=== PATIENT | female | born 1980 | race Asian ===

== ENCOUNTER 2016-08-29 07:31 | Outpatient (CLI) | payer BC, OTHER ==
[2016-08-29 08:51] LABS: BASOPHILS # (AUTO) 0.1 /CMM (0.0-0.2); BASOPHILS % (AUTO) 0.4 % (0.0-2.0); DIFF TOTAL % 100 %; EOSINOPHILS # (AUTO) 0.2 /CMM (0.0-0.7); EOSINOPHILS % (AUTO) 1.4 % (0.0-6.0); HEMATOCRIT 38 % (33-45); HEMOGLOBIN 11.9 g/dL (11.5-14.8); LYMPHOCYTES # (AUTO) 3.1 /CMM (0.8-4.8); LYMPHOCYTES % (AUTO) 24.9 % (20.0-44.0); MEAN CORPUSCULAR HEMOGLOBIN 22 PG (26.0-33.0); MEAN CORPUSCULAR HGB CONC 31 g/dl (31.0-36.0); MEAN CORPUSCULAR VOLUME 71 fL (82-100); MONOCYTES # (AUTO) 0.5 /CMM (0.1-1.30); MONOCYTES % (AUTO) 4.4 % (2.0-12.0); NEUTROPHILS # (AUTO) 8.5 /CMM (1.8-8.9); NEUTROPHILS % (AUTO) 68.9 % (43.0-81.0); PLATELET COUNT (AUTO) 222 /CMM (150-450); RED BLOOD CELL COUNT(AUTO) 5.34 MIL/uL (4.0-5.2); WHITE BLOOD COUNT (AUTO) 12.3 K/uL (4.3-11.0)
[2016-08-29 09:38] LABS: ANISOCYTOSIS 2+; EOSINOPHILS % (MANUAL) 3 % (0-4); LYMPHOCYTES % (MANUAL) 23 % (16-48); MICROCYTOSIS 2+; PLATELET ESTIMATE ADEQUATE
[2016-08-29 09:39] LABS: HYPOCHROMASIA 1+
== END 2016-08-29 23:59 | disposition home or self-care (01) ==
LOC: LAB 07:31
PROVIDERS: ATTEND Family Medicine
DX: R73.9 Hyperglycemia, unspecified (principal)
CPT/HCPCS: 36415; 85025-TC

== ENCOUNTER 2017-01-29 16:31 | Outpatient (CLI) | payer BC, OTHER | END 2017-01-29 23:59 | disposition home or self-care (01) | LOC: LAB 16:31 | PROVIDERS: ATTEND Family Medicine | DX: R31.21 Asymptomatic microscopic hematuria (principal); N92.6 Irregular menstruation, unspecified; D72.829 Elevated white blood cell count, unspecified | CPT/HCPCS: 87086-TC ==

== ENCOUNTER 2017-01-30 07:39 | Outpatient (CLI) | payer BC, OTHER ==
[2017-01-30 08:27] LABS: BASOPHILS # (AUTO) 0.1 /CMM (0.0-0.2); BASOPHILS % (AUTO) 0.7 % (0.0-2.0); EOSINOPHILS # (AUTO) 0.1 /CMM (0.0-0.7); EOSINOPHILS % (AUTO) 1.3 % (0.0-6.0); HEMATOCRIT 39 % (33-45); HEMOGLOBIN 12.6 g/dL (11.5-14.8); LYMPHOCYTES # (AUTO) 2.7 /CMM (0.8-4.8); LYMPHOCYTES % (AUTO) 33.2 % (20.0-44.0); MEAN CORPUSCULAR HEMOGLOBIN 23 PG (26.0-33.0); MEAN CORPUSCULAR HGB CONC 32 g/dl (31.0-36.0); MEAN CORPUSCULAR VOLUME 70 fL (82-100); MONOCYTES # (AUTO) 0.4 /CMM (0.1-1.30); MONOCYTES % (AUTO) 4.9 % (2.0-12.0); NEUTROPHILS # (AUTO) 4.8 /CMM (1.8-8.9); NEUTROPHILS % (AUTO) 59.9 % (43.0-81.0); PLATELET COUNT (AUTO) 247 /CMM (150-450); RDW COEFFICIENT OF VARIATION 15.1 (11.5-15.0); RED BLOOD CELL COUNT(AUTO) 5.54 MIL/uL (4.0-5.2); WHITE BLOOD COUNT (AUTO) 8.1 K/uL (4.3-11.0)
[2017-01-30 08:43] LABS: ALBUMIN 3.9 g/dL (3.4-5.0); BILIRUBIN,TOTAL 0.2 mg/dL (0.2-1.0); CALCIUM, SERUM 8.3 mg/dL (8.5-10.1); CREATININE 0.7 mg/dL (0.6-1.3); POTASSIUM 3.8 mmol/L (3.5-5.1); TOTAL PROTEIN, SERUM 7.5 g/dL (6.4-8.2)
[2017-01-30 08:50] LABS: T4 (THYROXINE) 5.6 ug/dL (4.7-13.3); THYROID STIMULATING HORMONE 1.411 uIU/mL (0.358-3.74)
[2017-01-30 09:02] LABS: EOSINOPHILS % (MANUAL) 2 % (0-4); LYMPHOCYTES % (MANUAL) 34 % (16-48); MONOCYTES % (MANUAL) 6 % (0-11.0); NEUTROPHILS % (MANUAL) 58 (42-76)
[2017-01-31 11:14] LABS: *TESTOSTERONE, SERUM 26 ng/dL (8-48); ESTRADIOL 102.7 pg/mL (.); FOLLICLE STIMULATION HORMONE 2.5 mIU/mL (.); LUTEINIZING HORMONE 3.3 mIU/mL (.); PROLACTIN 13.1 ng/mL (4.8-23.3)
== END 2017-01-30 23:59 | disposition home or self-care (01) ==
LOC: LAB 07:39
PROVIDERS: ATTEND Family Medicine
DX: N92.6 Irregular menstruation, unspecified (principal); D72.829 Elevated white blood cell count, unspecified; R53.83 Other fatigue; R73.9 Hyperglycemia, unspecified; R31.21 Asymptomatic microscopic hematuria; E78.5 Hyperlipidemia, unspecified
CPT/HCPCS: 36415; 80053-TC; 80061-TC; 82670; 83001; 83002; 84146; 84403; 84436-TC; 84443-TC; 85025-TC

== ENCOUNTER 2017-02-28 08:54 | Outpatient (CLI) | payer BC, OTHER | END 2017-02-28 23:59 | disposition home or self-care (01) | LOC: US 08:54 | PROVIDERS: ATTEND Family Medicine | DX: R31.21 Asymptomatic microscopic hematuria (principal) | CPT/HCPCS: 76770-TC ==

== ENCOUNTER 2017-08-28 07:28 | Outpatient (CLI) | payer BC ==
[2017-08-28 08:15] LABS: BASOPHILS # (AUTO) 0.1 /CMM (0.0-0.2); BASOPHILS % (AUTO) 0.9 % (0.0-2.0); EOSINOPHILS # (AUTO) 0.1 /CMM (0.0-0.7); EOSINOPHILS % (AUTO) 1.9 % (0.0-6.0); HEMATOCRIT 38 % (33-45); HEMOGLOBIN 12.5 g/dL (11.5-14.8); LYMPHOCYTES # (AUTO) 1.9 /CMM (0.8-4.8); LYMPHOCYTES % (AUTO) 28.3 % (20.0-44.0); MEAN CORPUSCULAR HEMOGLOBIN 23 PG (26.0-33.0); MEAN CORPUSCULAR HGB CONC 33 g/dl (31.0-36.0); MEAN CORPUSCULAR VOLUME 71 fL (82-100); MONOCYTES # (AUTO) 0.3 /CMM (0.1-1.30); MONOCYTES % (AUTO) 5.2 % (2.0-12.0); NEUTROPHILS # (AUTO) 4.2 /CMM (1.8-8.9); NEUTROPHILS % (AUTO) 63.7 % (43.0-81.0); PLATELET COUNT (AUTO) 267 /CMM (150-450); RDW COEFFICIENT OF VARIATION 15.5 (11.5-15.0); RED BLOOD CELL COUNT(AUTO) 5.41 MIL/uL (4.0-5.2); WHITE BLOOD COUNT (AUTO) 6.6 K/uL (4.3-11.0)
[2017-08-28 08:37] LABS: APPEARANCE,URINE CLEAR (CLEAR); BILIRUBIN,TOTAL 0.4 mg/dL (0.2-1.0); BILIRUBIN,URINE NEGATIVE (NEGATIVE); BLOOD, URINE NEGATIVE Ery/uL (NEGATIVE); CALCIUM, SERUM 8.7 mg/dL (8.5-10.1); COLOR,URINE YELLOW (YELLOW); CREATININE 0.7 mg/dL (0.6-1.3); KETONES,URINE TRACE (NEGATIVE); LEUKOCYTE ESTERASE ,URINE NEGATIVE (NEGATIVE); NITRITE, URINE NEGATIVE (NEGATIVE); POTASSIUM 3.8 mmol/L (3.5-5.1); PROTEIN,URINE NEGATIVE (NEGATIVE); TOTAL PROTEIN, SERUM 7.7 g/dL (6.4-8.2); UGLUCOSE NEGATIVE (NEGATIVE); UROBILINOGEN,URINE 0.2 EU/dL (0.2)
[2017-08-28 08:38] LABS: RBC,URINE 0-2 /HPF (0-2)
[2017-08-28 08:39] LABS: BACTERIA,URINE Rare /HPF (None Seen); WBC,URINE 0-2 /HPF (0-3)
[2017-08-28 08:42] LABS: THYROID STIMULATING HORMONE 2.039 uIU/mL (0.358-3.74)
[2017-08-28 08:47] LABS: BAND % (MANUAL) 2 % (0.0-5.0); EOSINOPHILS % (MANUAL) 2 % (0-4); LYMPHOCYTES % (MANUAL) 33 % (16-48); MONOCYTES % (MANUAL) 5 % (0-11.0); NEUTROPHILS % (MANUAL) 58 (42-76)
== END 2017-08-28 23:59 | disposition home or self-care (01) ==
LOC: LAB 07:28
PROVIDERS: ATTEND Family Medicine
DX: Z00.01 Encounter for general adult medical examination with abnormal findings (principal); E53.9 Vitamin B deficiency, unspecified; Z79.899 Other long term (current) drug therapy
CPT/HCPCS: 36415; 80053-TC; 80061-TC; 81000-TC; 82306; 84439-TC; 84443-TC; 85025-TC

== ENCOUNTER 2017-11-22 10:07 | Emergency (ER) | payer BC ==
[~2017-11-22] VITALS: Ht 160 cm; Wt 68.0 kg
[2017-11-22 10:07] VITALS: BP 124/83
[2017-11-22] MEDS ORDERED: CEPHALEXIN MONOHYDRATE 500 MG CAPSULE PO ONE ×2 (10:39→11:00)
== END 2017-11-22 10:41 | disposition home or self-care (01) ==
LOC: ER 10:08
DX: L03.114 Cellulitis of left upper limb (principal); T78.49XA Other allergy, initial encounter; X58.XXXA Exposure to other specified factors, initial encounter
CPT/HCPCS: A4606; Z7610

== ENCOUNTER 2017-12-11 09:50 | Outpatient (CLI) | payer BC | END 2017-12-11 23:59 | disposition home or self-care (01) | LOC: LAB 09:50 | PROVIDERS: ATTEND Family Medicine | DX: Z12.4 Encounter for screening for malignant neoplasm of cervix (principal); Z11.3 Encounter for screening for infections with a predominantly sexual mode of transmission | CPT/HCPCS: 87491; 87591; 88142 ==

== ENCOUNTER 2018-03-28 09:44 | Outpatient (CLI) | payer BC ==
[2018-03-28 10:32] LABS: BASOPHILS # (AUTO) 0.1 /CMM (0.0-0.2); BASOPHILS % (AUTO) 0.7 % (0.0-2.0); HEMATOCRIT 39 % (33-45); HEMOGLOBIN 12.3 g/dL (11.5-14.8); LYMPHOCYTES # (AUTO) 2.9 /CMM (0.8-4.8); LYMPHOCYTES % (AUTO) 32.1 % (20.0-44.0); MEAN CORPUSCULAR HEMOGLOBIN 23 PG (26.0-33.0); MEAN CORPUSCULAR HGB CONC 31 g/dl (31.0-36.0); MEAN CORPUSCULAR VOLUME 73 fL (82-100); MONOCYTES # (AUTO) 0.4 /CMM (0.1-1.30); MONOCYTES % (AUTO) 3.9 % (2.0-12.0); NEUTROPHILS # (AUTO) 5.7 /CMM (1.8-8.9); NEUTROPHILS % (AUTO) 62.3 % (43.0-81.0); PLATELET COUNT (AUTO) 290 /CMM (150-450); RED BLOOD CELL COUNT(AUTO) 5.36 MIL/uL (4.0-5.2); WHITE BLOOD COUNT (AUTO) 9.2 K/uL (4.3-11.0)
[2018-03-28 10:43] LABS: ALBUMIN 3.8 g/dL (3.4-5.0); BILIRUBIN,TOTAL 0.2 mg/dL (0.2-1.0); CALCIUM, SERUM 8.2 mg/dL (8.5-10.1); CREATININE 0.7 mg/dL (0.6-1.3); POTASSIUM 4.2 mmol/L (3.5-5.1); TOTAL PROTEIN, SERUM 7.4 g/dL (6.4-8.2)
== END 2018-03-28 23:59 | disposition home or self-care (01) ==
LOC: LAB 09:44
PROVIDERS: ATTEND Family Medicine
DX: R31.9 Hematuria, unspecified (principal)
CPT/HCPCS: 36415; 80053-TC; 85025-TC; 87086-TC

== ENCOUNTER 2018-04-14 08:53 | Outpatient (CLI) | payer BC | END 2018-04-14 23:59 | disposition home or self-care (01) | LOC: US 08:53 | PROVIDERS: ATTEND Family Medicine | DX: R31.9 Hematuria, unspecified (principal) | CPT/HCPCS: 76770-TC ==

== ENCOUNTER 2020-05-18 11:30 | Outpatient (CLI) | payer BC ==
[2020-05-18 12:50] LABS: APPEARANCE,URINE CLEAR (CLEAR); BILIRUBIN,URINE NEGATIVE (NEGATIVE); BLOOD, URINE SMALL Ery/uL (NEGATIVE); COLOR,URINE YELLOW (YELLOW); KETONES,URINE NEGATIVE (NEGATIVE); LEUKOCYTE ESTERASE ,URINE SMALL (NEGATIVE); NITRITE, URINE NEGATIVE (NEGATIVE); PROTEIN,URINE NEGATIVE (NEGATIVE); UGLUCOSE NEGATIVE (NEGATIVE); UROBILINOGEN,URINE 0.2 EU/dL (0.2)
[2020-05-18 13:03] LABS: BASOPHILS % (AUTO) 0.4 % (0.0-2.0); HEMATOCRIT 39 % (33-45); HEMOGLOBIN 12.1 g/dL (11.5-14.8); LYMPHOCYTES # (AUTO) 2.5 /CMM (0.8-4.8); LYMPHOCYTES % (AUTO) 31.3 % (20.0-44.0); MEAN CORPUSCULAR HGB CONC 31 g/dl (31.0-36.0); MEAN CORPUSCULAR VOLUME 72 fL (82-100); MONOCYTES # (AUTO) 0.5 /CMM (0.1-1.30); MONOCYTES % (AUTO) 5.7 % (2.0-12.0); NEUTROPHILS % (AUTO) 61.6 % (43.0-81.0); PLATELET COUNT (AUTO) 256 /CMM (150-450); RED BLOOD CELL COUNT(AUTO) 5.41 MIL/uL (4.0-5.2); WHITE BLOOD COUNT (AUTO) 8.1 K/uL (4.3-11.0)
[2020-05-18 13:39] LABS: ALBUMIN 3.9 g/dL (3.4-5.0); BILIRUBIN,TOTAL 0.3 mg/dL (0.2-1.0); CALCIUM, SERUM 8.6 mg/dL (8.5-10.1); CREATININE 0.7 mg/dL (0.6-1.3); POTASSIUM 3.7 mmol/L (3.5-5.1); TOTAL PROTEIN, SERUM 7.8 g/dL (6.4-8.2)
[2020-05-18 13:46] LABS: T4 (THYROXINE) 7.3 ug/dL (4.7-13.3); THYROID STIMULATING HORMONE 2.136 uIU/mL (0.358-3.74)
[2020-05-18 14:04] LABS: BACTERIA,URINE Rare /HPF (None Seen); SQUAMOUS EPITHELIAL CELL,UR Few /HPF (None Seen)
[2020-05-18 15:55] LABS: BAND % (MANUAL) 2 % (0.0-5.0); LYMPHOCYTES % (MANUAL) 32 % (16-48); MONOCYTES % (MANUAL) 12 % (0-11.0); NEUTROPHILS % (MANUAL) 54 (42-76)
== END 2020-05-18 23:59 | disposition home or self-care (01) ==
LOC: LAB 11:30
PROVIDERS: ATTEND Family Medicine
DX: K52.9 Noninfective gastroenteritis and colitis, unspecified (principal); R10.9 Unspecified abdominal pain
CPT/HCPCS: 36415; 80053-TC; 80061-TC; 81000-TC; 82150-TC; 83690-TC; 84436-TC; 84439-TC; 84443-TC; 85025-TC; 87086-TC

== ENCOUNTER 2020-08-08 11:51 | Emergency (ER) | payer BC, OTHER ==
[~2020-08-08] VITALS: Ht 157.5 cm; Wt 77.1 kg
[2020-08-08 12:10] VITALS: BP 156/96
--- NOTE | 2020-08-08 12:46 | NUR ---
covid 19 testing swab collected and sent to lab
--- NOTE | 2020-08-08 12:46 | NUR ---
Patient discharged to home in stable condition. Written and verbal after care instructions given. Patient verbalizes understanding of instruction.
--- NOTE | 2020-08-09 20:44 | NUR ---
LAB CALLED REGARDING POSITIVE COVID RESULT
== END 2020-08-08 12:47 | disposition home or self-care (01) ==
LOC: ER 11:52
DX: U07.1 COVID-19 (principal)
CPT/HCPCS: 87811; 99283; C9803; U0003

== ENCOUNTER 2020-08-29 08:28 | Outpatient (CLI) | payer BC ==
[2020-08-29 09:40] LABS: BASOPHILS % (AUTO) 0.3 % (0.0-2.0); HEMATOCRIT 40 % (33-45); HEMOGLOBIN 12.5 g/dL (11.5-14.8); LYMPHOCYTES # (AUTO) 2.2 /CMM (0.8-4.8); MEAN CORPUSCULAR HGB CONC 31 g/dl (31.0-36.0); MEAN CORPUSCULAR VOLUME 71 fL (82-100); MONOCYTES # (AUTO) 0.8 /CMM (0.1-1.30); NEUTROPHILS # (AUTO) 13.8 /CMM (1.8-8.9); NEUTROPHILS % (AUTO) 81.7 % (43.0-81.0); PLATELET COUNT (AUTO) 351 /CMM (150-450); RED BLOOD CELL COUNT(AUTO) 5.69 MIL/uL (4.0-5.2); WHITE BLOOD COUNT (AUTO) 16.9 K/uL (4.3-11.0)
[2020-08-29 09:50] LABS: BILIRUBIN,URINE NEGATIVE (NEGATIVE); LEUKOCYTE ESTERASE ,URINE NEGATIVE (NEGATIVE); NITRITE, URINE NEGATIVE (NEGATIVE); PROTEIN,URINE NEGATIVE (NEGATIVE); UGLUCOSE NEGATIVE (NEGATIVE); UROBILINOGEN,URINE 0.2 EU/dL (0.2)
[2020-08-29 10:00] LABS: ALBUMIN 4.2 g/dL (3.4-5.0); BILIRUBIN,TOTAL 0.4 mg/dL (0.2-1.0); CREATININE 0.7 mg/dL (0.6-1.3); POTASSIUM 4.1 mmol/L (3.5-5.1); TOTAL PROTEIN, SERUM 8.2 g/dL (6.4-8.2)
[2020-08-29 10:01] LABS: COLOR,URINE STRAW (YELLOW)
[2020-08-29 10:08] LABS: THYROID STIMULATING HORMONE 0.737 uIU/mL (0.358-3.74)
[2020-08-29 10:28] LABS: BACTERIA,URINE Rare /HPF (None Seen); SQUAMOUS EPITHELIAL CELL,UR Few /HPF (None Seen); WBC,URINE 0-2 /HPF (0-3)
== END 2020-08-29 23:59 | disposition home or self-care (01) ==
LOC: LAB 08:28
PROVIDERS: ATTEND Family Medicine
DX: E55.9 Vitamin D deficiency, unspecified (principal); R06.00 Dyspnea, unspecified
CPT/HCPCS: 36415; 71045-TC; 80053-TC; 80061-TC; 81001; 82306; 84439-TC; 84443-TC; 85025-TC; 87086-TC

== ENCOUNTER 2020-09-02 14:52 | Outpatient (CLI) | payer BC ==
[2020-09-02 15:15] LABS: BASOPHILS # (AUTO) 0.1 /CMM (0.0-0.2); BASOPHILS % (AUTO) 0.7 % (0.0-2.0); HEMATOCRIT 40 % (33-45); HEMOGLOBIN 12.4 g/dL (11.5-14.8); LYMPHOCYTES % (AUTO) 11.1 % (20.0-44.0); MEAN CORPUSCULAR HGB CONC 31 g/dl (31.0-36.0); MEAN CORPUSCULAR VOLUME 71 fL (82-100); MONOCYTES # (AUTO) 0.4 /CMM (0.1-1.30); MONOCYTES % (AUTO) 2.4 % (2.0-12.0); NEUTROPHILS # (AUTO) 15.3 /CMM (1.8-8.9); NEUTROPHILS % (AUTO) 85.8 % (43.0-81.0); PLATELET COUNT (AUTO) 320 /CMM (150-450); RED BLOOD CELL COUNT(AUTO) 5.62 MIL/uL (4.0-5.2); WHITE BLOOD COUNT (AUTO) 17.8 K/uL (4.3-11.0)
== END 2020-09-02 23:59 | disposition home or self-care (01) ==
LOC: LAB 14:52
PROVIDERS: ATTEND Family Medicine
DX: D72.829 Elevated white blood cell count, unspecified (principal)
CPT/HCPCS: 36415; 85025-TC

== ENCOUNTER 2020-09-06 08:03 | Outpatient (CLI) | payer BC ==
[2020-09-06 08:31] LABS: BASOPHILS # (AUTO) 0.1 /CMM (0.0-0.2); BASOPHILS % (AUTO) 0.5 % (0.0-2.0); EOSINOPHILS % (AUTO) 1.3 % (0.0-6.0); HEMATOCRIT 41 % (33-45); HEMOGLOBIN 12.5 g/dL (11.5-14.8); LYMPHOCYTES # (AUTO) 4.4 /CMM (0.8-4.8); LYMPHOCYTES % (AUTO) 37.8 % (20.0-44.0); MEAN CORPUSCULAR HGB CONC 31 g/dl (31.0-36.0); MEAN CORPUSCULAR VOLUME 72 fL (82-100); MONOCYTES # (AUTO) 0.8 /CMM (0.1-1.30); MONOCYTES % (AUTO) 6.9 % (2.0-12.0); NEUTROPHILS # (AUTO) 6.2 /CMM (1.8-8.9); NEUTROPHILS % (AUTO) 53.5 % (43.0-81.0); PLATELET COUNT (AUTO) 255 /CMM (150-450); RED BLOOD CELL COUNT(AUTO) 5.67 MIL/uL (4.0-5.2); WHITE BLOOD COUNT (AUTO) 11.6 K/uL (4.3-11.0)
[2020-09-06 13:12] LABS: LYMPHOCYTES % (MANUAL) 38 % (16-48); MONOCYTES % (MANUAL) 8 % (0-11.0); NEUTROPHILS % (MANUAL) 54 (42-76)
== END 2020-09-06 23:59 | disposition home or self-care (01) ==
LOC: LAB 08:03
PROVIDERS: ATTEND Family Medicine
DX: D72.829 Elevated white blood cell count, unspecified (principal)
CPT/HCPCS: 36415; 85025-TC

== ENCOUNTER 2020-10-13 07:37 | Outpatient (CLI) | payer BC ==
[2020-10-13 08:31] LABS: BASOPHILS % (AUTO) 0.6 % (0.0-2.0); EOSINOPHILS % (AUTO) 0.8 % (0.0-6.0); HEMATOCRIT 40 % (33-45); HEMOGLOBIN 12.6 g/dL (11.5-14.8); LYMPHOCYTES # (AUTO) 2.5 /CMM (0.8-4.8); LYMPHOCYTES % (AUTO) 33.9 % (20.0-44.0); MEAN CORPUSCULAR HGB CONC 31 g/dl (31.0-36.0); MEAN CORPUSCULAR VOLUME 71 fL (82-100); MONOCYTES # (AUTO) 0.4 /CMM (0.1-1.30); MONOCYTES % (AUTO) 5.2 % (2.0-12.0); NEUTROPHILS # (AUTO) 4.4 /CMM (1.8-8.9); NEUTROPHILS % (AUTO) 59.5 % (43.0-81.0); PLATELET COUNT (AUTO) 251 /CMM (150-450); RED BLOOD CELL COUNT(AUTO) 5.68 MIL/uL (4.0-5.2); WHITE BLOOD COUNT (AUTO) 7.4 K/uL (4.3-11.0)
== END 2020-10-13 23:59 | disposition home or self-care (01) ==
LOC: LAB 07:37
PROVIDERS: ATTEND Family Medicine
DX: K21.9 Gastro-esophageal reflux disease without esophagitis (principal); D72.829 Elevated white blood cell count, unspecified
CPT/HCPCS: 36415; 85025-TC; 86677

== ENCOUNTER 2020-12-22 07:09 | Outpatient (CLI) | payer BC ==
[2020-12-22 08:35] LABS: BASOPHILS % (AUTO) 0.5 % (0.0-2.0); EOSINOPHILS % (AUTO) 0.3 % (0.0-6.0); HEMATOCRIT 40 % (33-45); HEMOGLOBIN 12.6 g/dL (11.5-14.8); LYMPHOCYTES % (AUTO) 21.7 % (20.0-44.0); MEAN CORPUSCULAR HGB CONC 32 g/dl (31.0-36.0); MEAN CORPUSCULAR VOLUME 71 fL (82-100); MONOCYTES # (AUTO) 0.3 /CMM (0.1-1.30); MONOCYTES % (AUTO) 3.5 % (2.0-12.0); NEUTROPHILS # (AUTO) 6.9 /CMM (1.8-8.9); PLATELET COUNT (AUTO) 250 /CMM (150-450); RED BLOOD CELL COUNT(AUTO) 5.61 MIL/uL (4.0-5.2); WHITE BLOOD COUNT (AUTO) 9.4 K/uL (4.3-11.0)
[2020-12-22 08:36] LABS: BILIRUBIN,URINE NEGATIVE (NEGATIVE); COLOR,URINE YELLOW (YELLOW); LEUKOCYTE ESTERASE ,URINE NEGATIVE (NEGATIVE); NITRITE, URINE NEGATIVE (NEGATIVE); PROTEIN,URINE TRACE mg/dl (NEGATIVE); UGLUCOSE NEGATIVE (NEGATIVE); UROBILINOGEN,URINE 0.2 EU/dL (0.2)
[2020-12-22 08:51] LABS: ALBUMIN 4.1 g/dL (3.4-5.0); BILIRUBIN,TOTAL 0.4 mg/dL (0.2-1.0); CALCIUM, SERUM 9.1 mg/dL (8.5-10.1); CREATININE 0.6 mg/dL (0.6-1.3); POTASSIUM 4.3 mmol/L (3.5-5.1); TOTAL PROTEIN, SERUM 7.5 g/dL (6.4-8.2)
[2020-12-22 08:52] LABS: BACTERIA,URINE Few /HPF (None Seen); SQUAMOUS EPITHELIAL CELL,UR Moderate /HPF (None Seen); WBC,URINE 0-2 /HPF (0-3)
[2020-12-22 09:00] LABS: FREE T4 (FREE THYROXINE) 0.91 ng/dL (0.76-1.46); THYROID STIMULATING HORMONE 1.243 uIU/mL (0.358-3.74)
== END 2020-12-22 23:59 | disposition home or self-care (01) ==
LOC: LAB 07:09
PROVIDERS: ATTEND Family Medicine
DX: E78.2 Mixed hyperlipidemia (principal); E55.9 Vitamin D deficiency, unspecified; K21.9 Gastro-esophageal reflux disease without esophagitis; J30.9 Allergic rhinitis, unspecified; H92.02 Otalgia, left ear
CPT/HCPCS: 36415; 80053-TC; 80061-TC; 81001; 82306; 84439-TC; 84443-TC; 85025-TC

== ENCOUNTER 2021-02-09 07:20 | Outpatient (CLI) | payer BC ==
[2021-02-09 09:10] LABS: CHOLESTEROL 182 mg/dL (<200); HDL CHOLESTEROL 41 mg/dL (40-60); LDL 117 mg/dL (0-99); TRIGLYCERIDES 154 mg/dL (30-150)
[2021-02-09 09:14] LABS: BILIRUBIN,URINE NEGATIVE (NEGATIVE); LEUKOCYTE ESTERASE ,URINE NEGATIVE (NEGATIVE); NITRITE, URINE NEGATIVE (NEGATIVE); PROTEIN,URINE NEGATIVE (NEGATIVE); UGLUCOSE NEGATIVE (NEGATIVE); UROBILINOGEN,URINE 0.2 EU/dL (0.2)
[2021-02-09 09:15] LABS: COLOR,URINE STRAW (YELLOW)
[2021-02-09 09:36] LABS: BACTERIA,URINE None seen /HPF (None Seen); RBC,URINE 0-2 /HPF (0-2); WBC,URINE NONE SEEN /HPF (0-3)
[2021-02-09 09:37] LABS: SQUAMOUS EPITHELIAL CELL,UR Few /HPF (None Seen)
== END 2021-02-09 23:59 | disposition home or self-care (01) ==
LOC: LAB 07:20
PROVIDERS: ATTEND Family Medicine
DX: R31.9 Hematuria, unspecified (principal)
CPT/HCPCS: 36415; 80061-TC; 81001; 87086-TC

== ENCOUNTER 2021-02-13 10:37 | Outpatient (CLI) | payer BC | END 2021-02-13 23:59 | disposition home or self-care (01) | LOC: MRI 10:37 | PROVIDERS: ATTEND Family Medicine | DX: M75.92 Shoulder lesion, unspecified, left shoulder (principal) | CPT/HCPCS: 73221-TC ==

== ENCOUNTER 2021-03-10 07:53 | Outpatient (CLI) | payer BC ==
[2021-03-10 09:12] LABS: CREATININE 0.7 mg/dL (0.6-1.3)
[2021-03-10 09:25] LABS: BILIRUBIN,URINE NEGATIVE (NEGATIVE); LEUKOCYTE ESTERASE ,URINE NEGATIVE (NEGATIVE); NITRITE, URINE NEGATIVE (NEGATIVE); PH,URINE 6.5 (5.0-8.0); PROTEIN,URINE NEGATIVE (NEGATIVE); UGLUCOSE NEGATIVE (NEGATIVE); UROBILINOGEN,URINE 0.2 EU/dL (0.2)
[2021-03-10 09:30] LABS: COLOR,URINE STRAW (YELLOW)
[2021-03-10 09:50] LABS: BACTERIA,URINE Rare /HPF (None Seen); SQUAMOUS EPITHELIAL CELL,UR Few /HPF (None Seen)
== END 2021-03-10 23:59 | disposition home or self-care (01) ==
LOC: LAB 07:53
PROVIDERS: ATTEND Family Medicine
DX: N39.0 Urinary tract infection, site not specified (principal); R31.9 Hematuria, unspecified
CPT/HCPCS: 36415; 81001; 82565-TC; 84520-TC; 87086-TC

== ENCOUNTER 2021-03-15 09:16 | Outpatient (CLI) | payer BC ==
[2021-03-15] MEDS ORDERED: IOHEXOL-300 100 ML VIAL IV ONE (09:29)
[2021-03-15] MEDS ORDERED: CT SWABBABLE VALVE TRANS SET 1 EA INFUS.SET MC ONE (09:29)
[2021-03-15] MEDS ORDERED: IV NS 0.9% 250 ML IV ONE (09:29)
== END 2021-03-15 23:59 | disposition home or self-care (01) ==
LOC: CT 09:16
PROVIDERS: ATTEND Family Medicine
DX: R31.9 Hematuria, unspecified (principal)
CPT/HCPCS: 74178; J7050; Q9967

== ENCOUNTER 2021-03-31 07:42 | Outpatient (CLI) | payer BC ==
[2021-03-31 09:35] LABS: CREATININE 0.7 mg/dL (0.6-1.3)
== END 2021-03-31 23:59 | disposition home or self-care (01) ==
LOC: LAB 07:42
PROVIDERS: ATTEND Family Medicine
DX: R19.00 Intra-abdominal and pelvic swelling, mass and lump, unspecified site (principal)
CPT/HCPCS: 36415; 82565-TC; 84520-TC

== ENCOUNTER 2021-04-03 09:34 | Outpatient (CLI) | payer BC ==
[2021-04-03] MEDS ORDERED: GADOTERATE MEGLUMINE 10 MMOL/20 ML VIAL IV ONE (09:35)
== END 2021-04-03 23:59 | disposition home or self-care (01) ==
LOC: MRI 09:34
PROVIDERS: ATTEND Family Medicine
DX: N85.4 Malposition of uterus (principal); R19.00 Intra-abdominal and pelvic swelling, mass and lump, unspecified site
CPT/HCPCS: 72197; A9575

== ENCOUNTER 2021-04-17 07:54 | Outpatient (CLI) | payer BC | END 2021-04-17 23:59 | disposition home or self-care (01) | LOC: LAB 07:54 | PROVIDERS: ATTEND Family Medicine | DX: R19.00 Intra-abdominal and pelvic swelling, mass and lump, unspecified site (principal) | CPT/HCPCS: 36415; 86304 ==

== ENCOUNTER 2021-04-18 08:59 | Outpatient (CLI) | payer BC | END 2021-04-18 23:59 | disposition home or self-care (01) | LOC: US 08:59 | PROVIDERS: ATTEND Obstetrics & Gynecology | DX: N83.202 Unspecified ovarian cyst, left side (principal); N88.8 Other specified noninflammatory disorders of cervix uteri | CPT/HCPCS: 76856-TC ==

== ENCOUNTER 2021-04-20 11:29 | Outpatient (CLI) | payer BC ==
[2021-04-20 12:19] LABS: ALBUMIN 4.4 g/dL (3.4-5.0); BILIRUBIN,TOTAL 0.4 mg/dL (0.2-1.0); CALCIUM, SERUM 8.5 mg/dL (8.5-10.1); CREATININE 0.7 mg/dL (0.6-1.3); POTASSIUM 3.5 mmol/L (3.5-5.1); TOTAL PROTEIN, SERUM 8.2 g/dL (6.4-8.2)
[2021-04-20 13:07] LABS: BASOPHILS # (AUTO) 0.1 K/uL (0.0-0.2); BASOPHILS % (AUTO) 0.7 % (0.0-2.0); EOSINOPHILS % (AUTO) 0.4 % (0.0-6.0); HEMATOCRIT 42 % (33-45); HEMOGLOBIN 13.2 g/dL (11.5-14.8); LYMPHOCYTES # (AUTO) 2.3 K/uL (0.8-4.8); LYMPHOCYTES % (AUTO) 26.9 % (20.0-44.0); MEAN CORPUSCULAR HGB CONC 32 g/dl (31.0-36.0); MEAN CORPUSCULAR VOLUME 72 fL (82-100); MONOCYTES # (AUTO) 0.3 K/uL (0.1-1.30); MONOCYTES % (AUTO) 3.9 % (2.0-12.0); NEUTROPHILS # (AUTO) 5.7 K/uL (1.8-8.9); NEUTROPHILS % (AUTO) 68.1 % (43.0-81.0); PLATELET COUNT (AUTO) 289 K/uL (150-450); RED BLOOD CELL COUNT(AUTO) 5.77 MIL/uL (4.0-5.2); WHITE BLOOD COUNT (AUTO) 8.4 K/uL (4.3-11.0)
[2021-04-20 13:13] LABS: BILIRUBIN,URINE NEGATIVE (NEGATIVE); LEUKOCYTE ESTERASE ,URINE NEGATIVE (NEGATIVE); NITRITE, URINE NEGATIVE (NEGATIVE); PH,URINE 6.5 (5.0-8.0); PROTEIN,URINE NEGATIVE (NEGATIVE); UGLUCOSE NEGATIVE (NEGATIVE); UROBILINOGEN,URINE 0.2 EU/dL (0.2)
[2021-04-20 13:17] LABS: COLOR,URINE STRAW (YELLOW)
[2021-04-20 13:31] LABS: BACTERIA,URINE Few /HPF (None Seen); WBC,URINE 0-2 /HPF (0-3)
[2021-04-20 13:32] LABS: SQUAMOUS EPITHELIAL CELL,UR Few /HPF (None Seen)
[2021-04-20 14:05] LABS: THYROID STIMULATING HORMONE 1.222 uIU/mL (0.358-3.74)
== END 2021-04-20 23:59 | disposition home or self-care (01) ==
LOC: LAB 11:29
PROVIDERS: ATTEND Family Medicine
DX: Z01.818 Encounter for other preprocedural examination (principal); Z79.899 Other long term (current) drug therapy
CPT/HCPCS: 36415; 71046; 80053-TC; 81001; 84443-TC; 85025-TC; 85610-TC; 85730-TC; 87086-TC

== ENCOUNTER → 2021-08-16 | Outpatient (CLI) | payer BC | END | disposition home or self-care (01) | LOC: US 09:58 | PROVIDERS: ATTEND Family Medicine | DX: R10.2 Pelvic and perineal pain (principal); Z90.710 Acquired absence of both cervix and uterus; Z90.721 Acquired absence of ovaries, unilateral | CPT/HCPCS: 76856-TC ==

== ENCOUNTER 2021-08-28 08:32 | Outpatient (CLI) | payer BC | END 2021-08-28 23:59 | disposition home or self-care (01) | LOC: LAB 08:32 | PROVIDERS: ATTEND Family Medicine | DX: N39.0 Urinary tract infection, site not specified (principal) | CPT/HCPCS: 87086-TC ==

== ENCOUNTER 2021-11-15 09:06 | Outpatient (CLI) | payer BC ==
[2021-11-15 10:47] LABS: ALBUMIN 4.2 g/dL (3.4-5.0); BILIRUBIN,TOTAL 0.5 mg/dL (0.2-1.0); CALCIUM, SERUM 8.9 mg/dL (8.5-10.1); CREATININE 0.7 mg/dL (0.6-1.3); POTASSIUM 4.5 mmol/L (3.5-5.1); TOTAL PROTEIN, SERUM 7.9 g/dL (6.4-8.2)
[2021-11-15 10:51] LABS: FREE T4 (FREE THYROXINE) 1.06 ng/dL (0.76-1.46); THYROID STIMULATING HORMONE 1.474 uIU/mL (0.358-3.74)
[2021-11-15 10:54] LABS: BILIRUBIN,URINE NEGATIVE (NEGATIVE); COLOR,URINE YELLOW (YELLOW); LEUKOCYTE ESTERASE ,URINE NEGATIVE (NEGATIVE); NITRITE, URINE NEGATIVE (NEGATIVE); PROTEIN,URINE NEGATIVE (NEGATIVE); UGLUCOSE NEGATIVE (NEGATIVE); UROBILINOGEN,URINE 0.2 EU/dL (0.2)
[2021-11-15 11:42] LABS: BASOPHILS % (AUTO) 0.4 % (0.0-2.0); EOSINOPHILS % (AUTO) 0.4 % (0.0-6.0); HEMATOCRIT 42 % (33-45); HEMOGLOBIN 13.2 g/dL (11.5-14.8); LYMPHOCYTES # (AUTO) 2.5 K/uL (0.8-4.8); MEAN CORPUSCULAR HGB CONC 32 g/dl (31.0-36.0); MEAN CORPUSCULAR VOLUME 71 fL (82-100); MONOCYTES # (AUTO) 0.4 K/uL (0.1-1.30); NEUTROPHILS # (AUTO) 6.1 K/uL (1.8-8.9); NEUTROPHILS % (AUTO) 67.2 % (43.0-81.0); PLATELET COUNT (AUTO) 290 K/uL (150-450); RED BLOOD CELL COUNT(AUTO) 5.84 MIL/uL (4.0-5.2)
[2021-11-15 14:17] LABS: BACTERIA,URINE MOD /HPF (None Seen); SQUAMOUS EPITHELIAL CELL,UR FEW /HPF (None Seen); WBC,URINE 0-2 /HPF (0-3)
[2021-11-15 21:48] LABS: BAND % (MANUAL) 6 % (0.0-5.0); LYMPHOCYTES % (MANUAL) 26 % (16-48); MONOCYTES % (MANUAL) 5 % (0-11.0); NEUTROPHILS % (MANUAL) 63 (42-76)
== END 2021-11-15 23:59 | disposition home or self-care (01) ==
LOC: LAB 09:06
PROVIDERS: ATTEND Family Medicine
DX: R19.6 Halitosis (principal); Z00.00 Encounter for general adult medical examination without abnormal findings
CPT/HCPCS: 36415; 80053-TC; 80061-TC; 81001; 84439-TC; 84443-TC; 85025-TC

== ENCOUNTER 2022-05-28 08:07 | Outpatient (CLI) | payer BC ==
[2022-05-28 08:36] LABS: BASOPHILS # (AUTO) 0.1 K/uL (0.0-0.2); BASOPHILS % (AUTO) 0.6 % (0.0-2.0); EOSINOPHILS % (AUTO) 1.1 % (0.0-6.0); HEMATOCRIT 38 % (33-45); HEMOGLOBIN 12.3 g/dL (11.5-14.8); LYMPHOCYTES # (AUTO) 3.1 K/uL (0.8-4.8); LYMPHOCYTES % (AUTO) 30.7 % (20.0-44.0); MEAN CORPUSCULAR HGB CONC 32 g/dl (31.0-36.0); MEAN CORPUSCULAR VOLUME 70 fL (82-100); MONOCYTES # (AUTO) 0.8 K/uL (0.1-1.30); MONOCYTES % (AUTO) 7.7 % (2.0-12.0); NEUTROPHILS # (AUTO) 5.9 K/uL (1.8-8.9); NEUTROPHILS % (AUTO) 59.9 % (43.0-81.0); PLATELET COUNT (AUTO) 253 K/uL (150-450); RED BLOOD CELL COUNT(AUTO) 5.45 MIL/uL (4.0-5.2); WHITE BLOOD COUNT (AUTO) 9.9 K/uL (4.3-11.0)
[2022-05-28 08:48] LABS: ALBUMIN 3.8 g/dL (3.4-5.0); BILIRUBIN,TOTAL 0.2 mg/dL (0.2-1.0); CALCIUM, SERUM 8.6 mg/dL (8.5-10.1); CREATININE 0.8 mg/dL (0.6-1.3); POTASSIUM 3.9 mmol/L (3.5-5.1); TOTAL PROTEIN, SERUM 7.4 g/dL (6.4-8.2)
[2022-05-28 08:58] LABS: THYROID STIMULATING HORMONE 1.859 uIU/mL (0.358-3.74)
== END 2022-05-28 23:59 | disposition home or self-care (01) ==
LOC: LAB 08:07
PROVIDERS: ATTEND Obstetrics & Gynecology
DX: Z01.419 Encounter for gynecological examination (general) (routine) without abnormal findings (principal)
CPT/HCPCS: 36415; 80053-TC; 83001; 84443-TC; 85025-TC

== ENCOUNTER 2022-05-29 08:55 | Outpatient (CLI) | payer BC | END 2022-05-29 23:59 | disposition home or self-care (01) | LOC: US 08:55 | PROVIDERS: ATTEND Obstetrics & Gynecology | DX: R10.2 Pelvic and perineal pain (principal); Z90.710 Acquired absence of both cervix and uterus; Z90.721 Acquired absence of ovaries, unilateral | CPT/HCPCS: 76856-TC ==

== ENCOUNTER 2022-09-21 07:54 | Outpatient (CLI) | payer BC ==
[2022-09-21 08:39] LABS: BASOPHILS % (AUTO) 0.5 % (0.0-2.0); BILIRUBIN,URINE NEGATIVE (NEGATIVE); COLOR,URINE YELLOW (YELLOW); EOSINOPHILS % (AUTO) 1.2 % (0.0-6.0); HEMATOCRIT 41 % (33-45); HEMOGLOBIN 12.8 g/dL (11.5-14.8); LEUKOCYTE ESTERASE ,URINE NEGATIVE (NEGATIVE); LYMPHOCYTES # (AUTO) 2.4 K/uL (0.8-4.8); LYMPHOCYTES % (AUTO) 27.6 % (20.0-44.0); MEAN CORPUSCULAR HGB CONC 31 g/dl (31.0-36.0); MEAN CORPUSCULAR VOLUME 71 fL (82-100); MONOCYTES # (AUTO) 0.5 K/uL (0.1-1.30); MONOCYTES % (AUTO) 5.6 % (2.0-12.0); NEUTROPHILS # (AUTO) 5.6 K/uL (1.8-8.9); NEUTROPHILS % (AUTO) 65.1 % (43.0-81.0); NITRITE, URINE NEGATIVE (NEGATIVE); PLATELET COUNT (AUTO) 290 K/uL (150-450); PROTEIN,URINE NEGATIVE (NEGATIVE); RED BLOOD CELL COUNT(AUTO) 5.79 MIL/uL (4.0-5.2); UGLUCOSE NEGATIVE (NEGATIVE); UROBILINOGEN,URINE 0.2 EU/dL (0.2); WHITE BLOOD COUNT (AUTO) 8.7 K/uL (4.3-11.0)
[2022-09-21 08:55] LABS: BACTERIA,URINE Rare /HPF (None Seen); RBC,URINE 0-2 /HPF (0-2); SQUAMOUS EPITHELIAL CELL,UR Few /HPF (None Seen); WBC,URINE 0-2 /HPF (0-3)
[2022-09-21 09:20] LABS: THYROID STIMULATING HORMONE 2.782 uIU/mL (0.358-3.74); URIC ACID 4.2 mg/dL (2.6-7.2)
[2022-09-21 09:22] LABS: ALBUMIN 4.1 g/dL (3.4-5.0); BILIRUBIN,TOTAL 0.3 mg/dL (0.2-1.0); CALCIUM, SERUM 8.5 mg/dL (8.5-10.1); CREATININE 0.7 mg/dL (0.6-1.3); MAGNESIUM 2.3 mg/dL (1.8-2.4); POTASSIUM 3.3 mmol/L (3.5-5.1); TOTAL PROTEIN, SERUM 7.9 g/dL (6.4-8.2)
== END 2022-09-21 23:59 | disposition home or self-care (01) ==
LOC: LAB 07:54
PROVIDERS: ATTEND Family Medicine
DX: R53.83 Other fatigue (principal); R31.9 Hematuria, unspecified; M25.50 Pain in unspecified joint
CPT/HCPCS: 36415; 80053-TC; 80061-TC; 81001; 82306; 82607-TC; 82728-TC; 83540-TC; 83735-TC; 84439-TC; 84443-TC; 84550-TC; 85025-TC; 87086-TC

== ENCOUNTER 2023-04-19 07:16 | Outpatient (CLI) | payer BC ==
[2023-04-19 09:15] LABS: BASOPHILS # (AUTO) 0.1 K/uL (0.0-0.2); BASOPHILS % (AUTO) 0.6 % (0.0-2.0); EOSINOPHILS # (AUTO) 0.1 K/uL (0.0-0.7); EOSINOPHILS % (AUTO) 0.7 % (0.0-6.0); HEMATOCRIT 38 % (33-45); HEMOGLOBIN 11.9 g/dL (11.5-14.8); LYMPHOCYTES # (AUTO) 2.8 K/uL (0.8-4.8); LYMPHOCYTES % (AUTO) 26.7 % (20.0-44.0); MEAN CORPUSCULAR HEMOGLOBIN 22 PG (26.0-33.0); MEAN CORPUSCULAR HGB CONC 32 g/dl (31.0-36.0); MEAN CORPUSCULAR VOLUME 71 fL (82-100); MONOCYTES # (AUTO) 0.6 K/uL (0.1-1.30); MONOCYTES % (AUTO) 5.5 % (2.0-12.0); NEUTROPHILS # (AUTO) 6.9 K/uL (1.8-8.9); NEUTROPHILS % (AUTO) 66.5 % (43.0-81.0); PLATELET COUNT (AUTO) 274 K/uL (150-450); RED BLOOD CELL COUNT(AUTO) 5.32 MIL/uL (4.0-5.2); RED CELL DISTRIBUTION WIDTH 15.4 % (11.5-15.0); WHITE BLOOD COUNT (AUTO) 10.4 K/uL (4.3-11.0)
[2023-04-19 09:17] LABS: APPEARANCE,URINE CLEAR (CLEAR); BILIRUBIN,URINE NEGATIVE (NEGATIVE); BLOOD, URINE 2+ Ery/uL (NEGATIVE); COLOR,URINE YELLOW (YELLOW); KETONES,URINE NEGATIVE (NEGATIVE); LEUKOCYTE ESTERASE ,URINE NEGATIVE (NEGATIVE); NITRITE, URINE NEGATIVE (NEGATIVE); PROTEIN,URINE NEGATIVE (NEGATIVE); UGLUCOSE NEGATIVE (NEGATIVE); UROBILINOGEN,URINE 0.2 EU/dL (0.2)
[2023-04-19 09:25] LABS: ADD URINE CULTURE NO; BACTERIA,URINE Rare /HPF (None Seen); SQUAMOUS EPITHELIAL CELL,UR Few /HPF (None Seen); WBC,URINE 0-2 /HPF (0-3)
[2023-04-19 09:38] LABS: ALBUMIN 3.9 g/dL (3.4-5.0); BILIRUBIN,TOTAL 0.3 mg/dL (0.2-1.0); CALCIUM, SERUM 8.6 mg/dL (8.5-10.1); CREATININE 0.7 mg/dL (0.6-1.3); POTASSIUM 3.8 mmol/L (3.5-5.1); TOTAL PROTEIN, SERUM 7.7 g/dL (6.4-8.2)
[2023-04-19 09:48] LABS: THYROID STIMULATING HORMONE 1.876 uIU/mL (0.358-3.74)
[2023-04-19 15:52] LABS: HIV-1 p24 ANTIGEN NON REACTIVE (NONREACTIVE); HIV-1/2 ANTIBODY NON REACTIVE (NONREACTIVE)
[2023-04-20 05:08] LABS: RAPID PLASMA REAGIN QUAL. Non Reactive (Non Reactive)
[2023-04-20 06:06] LABS: VIT D, 25-HYDROXY 25.5 ng/mL (30.0-100.0)
[2023-04-20 08:06] LABS: T3, FREE 3.1 pg/mL (2.0-4.4)
[2023-04-21 10:06] LABS: CHLAMYDIA TRACHOMATIS NAA Negative (Negative); NEISSERIA GONORRHOEAE NAA Negative (Negative)
== END 2023-04-19 23:59 | disposition home or self-care (01) ==
LOC: LAB 07:16
PROVIDERS: ATTEND Family Medicine
DX: Z00.01 Encounter for general adult medical examination with abnormal findings (principal); Z11.3 Encounter for screening for infections with a predominantly sexual mode of transmission
CPT/HCPCS: 36415; 80053-TC; 80061-TC; 81001; 82306; 84439-TC; 84443-TC; 84481; 85025-TC; 86592; 86593; 86803; 87491; 87591; 87806

== ENCOUNTER 2023-05-17 08:03 | Outpatient (CLI) | payer BC ==
[2023-05-17 08:56] LABS: CREATININE 0.8 mg/dL (0.6-1.3)
[2023-05-17] MEDS ORDERED: IV NS 0.9% 250 ML IV ONE (09:26)
[2023-05-17] MEDS ORDERED: IOHEXOL-300 100 ML VIAL IV ONE (09:26)
== END 2023-05-17 23:59 | disposition home or self-care (01) ==
LOC: CT 08:03
PROVIDERS: ATTEND Family Medicine
DX: R31.9 Hematuria, unspecified (principal); R10.9 Unspecified abdominal pain; Z90.6 Acquired absence of other parts of urinary tract
CPT/HCPCS: 74177; 84520; 82565; 36415; J7050; Q9967

== ENCOUNTER → 2024-02-25 | Emergency (ER) | payer BC, OTHER ==
[~2024-02-25] VITALS: Ht 160 cm; Wt 71.2 kg
[2024-02-25 22:54] LABS: BASOPHILS # (AUTO) 0.1 K/uL (0.0-0.2); BASOPHILS % (AUTO) 0.6 % (0.0-2.0); EOSINOPHILS # (AUTO) 0.1 K/uL (0.0-0.7); EOSINOPHILS % (AUTO) 0.7 % (0.0-6.0); HEMATOCRIT 36 % (33-45); HEMOGLOBIN 11.9 g/dL (11.5-14.8); LYMPHOCYTES # (AUTO) 2.7 K/uL (0.8-4.8); LYMPHOCYTES % (AUTO) 29.1 % (20.0-44.0); MEAN CORPUSCULAR HEMOGLOBIN 23 PG (26.0-33.0); MEAN CORPUSCULAR HGB CONC 33 g/dl (31.0-36.0); MEAN CORPUSCULAR VOLUME 70 fL (82-100); MONOCYTES # (AUTO) 0.6 K/uL (0.1-1.30); MONOCYTES % (AUTO) 6.2 % (2.0-12.0); NEUTROPHILS # (AUTO) 5.8 K/uL (1.8-8.9); NEUTROPHILS % (AUTO) 63.4 % (43.0-81.0); PLATELET COUNT (AUTO) 250 K/uL (150-450); RED BLOOD CELL COUNT(AUTO) 5.25 MIL/uL (4.0-5.2); RED CELL DISTRIBUTION WIDTH 15.1 % (11.5-15.0); WHITE BLOOD COUNT (AUTO) 9.2 K/uL (4.3-11.0)
[2024-02-25 23:19] LABS: THYROID STIMULATING HORMONE 1.83 uIU/mL (0.358-3.74)
[2024-02-25 23:35] LABS: ALBUMIN 3.5 g/dL (3.4-5.0); BILIRUBIN,TOTAL 0.4 mg/dL (0.2-1.0); CALCIUM, SERUM 8.9 mg/dL (8.5-10.1); CREATININE 0.7 mg/dL (0.6-1.3); POTASSIUM 3.5 mmol/L (3.5-5.1); TOTAL PROTEIN, SERUM 7.3 g/dL (6.4-8.2)
[2024-02-25 23:56] LABS: APPEARANCE,URINE CLEAR (CLEAR); BILIRUBIN,URINE NEGATIVE (NEGATIVE); BLOOD, URINE 2+ Ery/uL (NEGATIVE); COLOR,URINE YELLOW (YELLOW); KETONES,URINE NEGATIVE (NEGATIVE); LEUKOCYTE ESTERASE ,URINE NEGATIVE (NEGATIVE); NITRITE, URINE NEGATIVE (NEGATIVE); PROTEIN,URINE NEGATIVE (NEGATIVE); UGLUCOSE NEGATIVE (NEGATIVE); UROBILINOGEN,URINE 0.2 EU/dL (0.2)
[2024-02-25 23:58] LABS: ADD URINE CULTURE NO; BACTERIA,URINE Rare /HPF (None Seen); PREGNANCY TEST URINE QUAL NEGATIVE (NEGATIVE); SQUAMOUS EPITHELIAL CELL,UR Rare /HPF (None Seen); WBC,URINE 0-2 /HPF (0-3)
[2024-02-26 00:50] VITALS: BP 142/82; TEMP 98.1; O2SAT 98
== END | disposition home or self-care (01) ==
LOC: ER 21:10
DX: R03.0 Elevated blood-pressure reading, without diagnosis of hypertension (principal); R10.2 Pelvic and perineal pain
CPT/HCPCS: 36415; 70450-TC; 71045-TC; 80053-TC; 81001; 83880; 84443-TC; 84484-TC; 84703-TC; 85025-TC

== ENCOUNTER 2025-01-15 09:03 | Outpatient (CLI) | payer BC ==
[2025-01-15 10:17] LABS: BASOPHILS # (AUTO) 0.1 K/uL (0.0-0.2); BASOPHILS % (AUTO) 0.6 % (0.0-2.0); EOSINOPHILS # (AUTO) 0.1 K/uL (0.0-0.7); EOSINOPHILS % (AUTO) 0.9 % (0.0-6.0); HEMATOCRIT 38 % (33-45); HEMOGLOBIN 12.2 g/dL (11.5-14.8); LYMPHOCYTES # (AUTO) 2.9 K/uL (0.8-4.8); LYMPHOCYTES % (AUTO) 25.2 % (20.0-44.0); MEAN CORPUSCULAR HEMOGLOBIN 22 PG (26.0-33.0); MEAN CORPUSCULAR HGB CONC 32 g/dl (31.0-36.0); MEAN CORPUSCULAR VOLUME 70 fL (82-100); MONOCYTES # (AUTO) 0.6 K/uL (0.1-1.30); MONOCYTES % (AUTO) 4.8 % (2.0-12.0); NEUTROPHILS # (AUTO) 7.8 K/uL (1.8-8.9); NEUTROPHILS % (AUTO) 68.5 % (43.0-81.0); PLATELET COUNT (AUTO) 322 K/uL (150-450); RED BLOOD CELL COUNT(AUTO) 5.47 MIL/uL (4.0-5.2); RED CELL DISTRIBUTION WIDTH 15.6 % (11.5-15.0); WHITE BLOOD COUNT (AUTO) 11.4 K/uL (4.3-11.0)
[2025-01-15 10:39] LABS: THYROID STIMULATING HORMONE 2.38 uIU/mL (0.358-3.74); URIC ACID 3.7 mg/dL (2.6-7.2)
[2025-01-15 10:51] LABS: ALBUMIN 4.1 g/dL (3.4-5.0); BILIRUBIN,TOTAL 0.2 mg/dL (0.2-1.0); CALCIUM, SERUM 8.9 mg/dL (8.5-10.1); CREATININE 0.7 mg/dL (0.6-1.3); MAGNESIUM 2.2 mg/dL (1.8-2.4); POTASSIUM 3.5 mmol/L (3.5-5.1); TOTAL PROTEIN, SERUM 7.9 g/dL (6.4-8.2)
[2025-01-16 06:10] LABS: IMMUNOGLOBULIN A QN S 129 mg/dL (87-352)
[2025-01-16 08:07] LABS: CORTISOL SERUM 4.8 ug/dL (6.2-19.4); FOLIC ACID 9.2 ng/mL (>3.0); T3 TOTAL 113 ng/dL (71-180)
[2025-01-19 06:09] LABS: ENDOMYSIAL ANTIBODY IGA Negative (Negative)
== END 2025-01-15 23:59 | disposition home or self-care (01) ==
LOC: LAB 09:03
PROVIDERS: ATTEND Family Medicine
DX: Z79.899 Other long term (current) drug therapy (principal); R53.83 Other fatigue
CPT/HCPCS: 36415; 80053-TC; 82533; 82607-TC; 82728-TC; 83540-TC; 83735-TC; 84439-TC; 84443-TC; 84480; 84550-TC; 85025-TC; 87338

== ENCOUNTER 2025-02-12 08:57 | Outpatient (CLI) | payer BC | END 2025-02-12 23:59 | disposition home or self-care (01) | LOC: US 08:57 | PROVIDERS: ATTEND Family Medicine | DX: N83.291 Other ovarian cyst, right side (principal); N94.89 Other specified conditions associated with female genital organs and menstrual cycle; Z90.710 Acquired absence of both cervix and uterus; Z90.721 Acquired absence of ovaries, unilateral | CPT/HCPCS: 76856-TC ==